=== PATIENT | male | born 1990 | race Caucasian/White ===

== ENCOUNTER → 2017-03-30 | Day surgery (SDC) | payer OTHER ==
[~2017-03-30] VITALS: Ht 180.3 cm; Wt 74.8 kg
[~2017-03-30] MED LIST: CIPRO500 M1 PO; IBUPROFEN800 M1 PO; MORPHINE SULFAT15 M4 PO; TRAMADOL HCL50 M1 PO
--- NOTE | 2017-03-30 12:33 | Operative Report ---
Operative/Inv Procedure Report Surgery Date: 03/30/17 Name of Procedure: left ESWL Pre-Operative Diagnosis: left UPJ stone with hydronephrosis Post-Operative Diagnosis: same Estimated Blood Loss: scant Surgeon/Library Specialist: VALERI BELTRAN MD Anesthesia: local monitored anesthesi Complications: none Condition: stable Operative Indication: left renal colic with hydronephrosis Operative/Procedure Note Note: 26yo male with a excruciating left renal pain due to an obstructing stone. He was identified in the holding area and consented for a left ESWL. The risks, benefits and alternatives of the surgery were given. All questions were answered. Patient was taken to the operating room and placed in the supine position. Time out was performed. IV abx were given and the ESWL was started once he was optimally positioned. Left UPJ stone was seen flouroscopically but not by US. The shocks were started at a power of 1 and quikcly increased to 20 eventually for a total of 20 shocks. Patient tolerated the procedure well. THe stone looked visibly different at the end of the case. Findings: left UPJ stone
== END ==
LOC: STS 03-16 04:12
DX: N13.2 Hydronephrosis with renal and ureteral calculous obstruction (principal); Z87.442 Personal history of urinary calculi; N23 Unspecified renal colic; F17.200 Nicotine dependence, unspecified, uncomplicated
CPT/HCPCS: J0690; J1885; J2250